=== PATIENT | male | born 1945 | race African-American/Black ===

== ENCOUNTER 2020-11-27 20:29 | Inpatient (IN) | payer MEDICARE, MEDICAID ==
[~2020-11-27] VITALS: Ht 172.7 cm; Wt 97.7 kg
[~2020-11-27 20:29] MED LIST: HYDR12.56 PO
[2020-11-27] MEDS ORDERED: ACETAMINOPHEN 500 MG TAB PO ONE (23:30)
[2020-11-27 23:51] LABS: Basophils # (auto) 0 10 ^3/uL (0-0.2); Basophils % (auto) 0.2 % (0.0-2.0); Eosinophils # (auto) 0 10 ^3/uL (0-0.8); Eosinophils % (auto) 0.1 % (0.0-7.0); Hematocrit 44.4 % (41.0-53.0); Hemoglobin 15.7 g/dL (13.5-17.5); Lymphocytes # (auto) 0.5 10 ^3/uL (0.4-5.4); Lymphocytes % (auto) 6.7 % (10.0-50.0); Mean Corpuscular Hemoglobin 30.2 pg (28.0-32.0); Mean Corpuscular Hgb Conc. 35.5 g/dL (32.0-36.0); Mean Corpuscular Volume 85.2 fL (80.0-100.0); Monocytes # (auto) 0.5 10 ^3/uL (0-1.3); Monocytes % (auto) 6.1 % (0.0-12.0); Neutrophils # (auto) 7.1 10 ^3/uL (1.6-8.6); Neutrophils % (auto) 86.9 % (37.0-80.0); Nucleated Red Blood Cells % 0.1 %; Red Blood Cells 5.21 10^6/uL (4.5-5.90); Red Cell Distribution Width 13.6 % (11.8-14.3); White Blood Cell 8.2 10^3/uL (4.4-10.8)
[2020-11-28 00:12] LABS: Albumin 3.2 g/dL (3.4-5.0); BUN/Creatinine Ratio 16.1; Calcium 8.7 mg/dL (8.5-10.1); Magnesium 1.8 mg/dL (1.6-2.6)
[2020-11-28 00:17] LABS: Bilirubin, Total 1.1 mg/dL (0.2-1.0); Total Protein 6.3 g/dL (6.4-8.2)
[2020-11-28 00:27] LABS: Potassium 2.8 mmol/L (3.5-5.1)
[2020-11-28] MEDS ORDERED: POTASSIUM CHL 20MEQ/100ML 100 ML IV ONE (00:45)
[2020-11-28] MEDS ORDERED: POTASSIUM EFFERVESENT TAB 25 MEQ PO ONE (00:45)
[2020-11-28] MEDS ORDERED: MAGNESIUM SULFATE 1GM/100ML 100 ML IV ONE (04:00)
[2020-11-28] MEDS ORDERED: ACETAMINOPHEN 325 MG TAB PO PRN (04:45)
[2020-11-28] MEDS ORDERED: ONDANSETRON HCL 4 MG/2 ML VIAL IV PRN (04:45)
[2020-11-28 04:48] LABS: BUN/Creatinine Ratio 19.2
[2020-11-28 04:58] LABS: Potassium 2.9 mmol/L (3.5-5.1)
[2020-11-28] MEDS ORDERED: POTASSIUM CHL 20 Meq TABLET PO ONE (06:45)
[2020-11-28] MEDS: cefTRIAXone 1GM/50ML D5W 50 ML IV SCH (08:11)
[2020-11-28] MEDS: LOSARTAN POTASSIUM 50 MG TAB PO SCH (08:15)
[2020-11-28] MEDS: PANTOPRAZOLE 40 MG TAB PO SCH (08:16)
[2020-11-28] MEDS: amLODIPine BESYLATE 5 MG TAB PO SCH (08:16)
[2020-11-28 08:26] LABS: BUN/Creatinine Ratio 17.1; Calcium 8.9 mg/dL (8.5-10.1); Potassium 3.2 mmol/L (3.5-5.1)
[2020-11-28] MEDS ORDERED: POTASSIUM CHL 10 Meq TABLET PO SCH (10:00)
[2020-11-28 10:32] LABS: Urine Bacteria NONE SEEN /hpf (None Seen); Urine Blood 3+ /uL (Negative); Urine Specific Gravity 1.007 (1.001-1.035); Urine WBC 2 /hpf (0 - 3)
[2020-11-28] MEDS ORDERED: POTA10TA51 PO (15:58)
[2020-11-28] MEDS ORDERED: ATOR20TA50 PO (15:58)
[2020-11-28] MEDS ORDERED: LOSA-69 PO (15:58)
[2020-11-28] MEDS ORDERED: AMLO-496 PO (15:58)
[2020-11-28 16:51] VITALS: BP 147/67
[2020-11-28 19:34] LABS: Alcohol, Urine < 3.0 mg/dL (0-10); Amphetamine Screen, Urine NEGATIVE (NEGATIVE); Barbiturate Scree,Urine NEGATIVE (NEGATIVE); Benzodiazephine Screen, Urine NEGATIVE (NEGATIVE); Cannabinoid Screen, Urine POSITIVE (NEGATIVE); Cocaine Screen, Urine NEGATIVE (NEGATIVE); Opiate Scree,Urine NEGATIVE (NEGATIVE); Phencyclidine Screen, Urine NEGATIVE (NEGATIVE)
[2020-11-28] MEDS: ATORVASTATIN 20 MG TAB PO SCH (21:36)
[2020-11-28 22:00] VITALS: BP 125/76
[2020-11-29 05:00] VITALS: BP 130/77
[2020-11-29 07:18] LABS: Magnesium 2.1 mg/dL (1.6-2.6)
[2020-11-29 07:25] LABS: BUN/Creatinine Ratio 19.4
[2020-11-29 07:32] LABS: Potassium 2.9 mmol/L (3.5-5.1)
[2020-11-29 07:37] LABS: Basophils # (auto) 0 10 ^3/uL (0-0.2); Basophils % (auto) 0.4 % (0.0-2.0); Eosinophils # (auto) 0.1 10 ^3/uL (0-0.8); Eosinophils % (auto) 1.5 % (0.0-7.0); Hematocrit 42.9 % (41.0-53.0); Hemoglobin 15.4 g/dL (13.5-17.5); Lymphocytes # (auto) 1.8 10 ^3/uL (0.4-5.4); Mean Corpuscular Hemoglobin 30.3 pg (28.0-32.0); Mean Corpuscular Hgb Conc. 35.9 g/dL (32.0-36.0); Mean Corpuscular Volume 84.4 fL (80.0-100.0); Monocytes % (auto) 12.8 % (0.0-12.0); Neutrophils # (auto) 4.8 10 ^3/uL (1.6-8.6); Neutrophils % (auto) 62.3 % (37.0-80.0); Nucleated Red Blood Cells % 0.2 %; Red Blood Cells 5.09 10^6/uL (4.5-5.90); Red Cell Distribution Width 13.8 % (11.8-14.3); White Blood Cell 7.8 10^3/uL (4.4-10.8)
[2020-11-29 09:00] VITALS: BP 130/63
[2020-11-29] MEDS: POTASSIUM CHL 20MEQ/100ML 100 ML IV SCH ×2 (09:00→11:00)
[2020-11-29] MEDS: cefTRIAXone 1GM/50ML D5W 50 ML IV SCH (09:00)
[2020-11-29] MEDS: PANTOPRAZOLE 40 MG TAB PO SCH (09:41)
[2020-11-29] MEDS: amLODIPine BESYLATE 5 MG TAB PO SCH (10:00)
[2020-11-29] MEDS ORDERED: POTASSIUM CHL 20 Meq TABLET PO SCH (10:00)
[2020-11-29] MEDS: LOSARTAN POTASSIUM 50 MG TAB PO SCH (10:00)
[2020-11-29] MEDS ORDERED: LORazepam 2MG/ML-1ML VIAL IV ONE (11:00)
[2020-11-29] MEDS ORDERED: CHOLECALCIFEROL (VITD3) 2,000 UNIT CAP/TAB PO ONE (11:15)
[2020-11-29 13:00] VITALS: BP 133/95
[2020-11-29 17:00] VITALS: BP 154/79
[2020-11-29] MEDS: ATORVASTATIN 20 MG TAB PO SCH (21:09)
[2020-11-29 22:00] VITALS: BP 156/82
[2020-11-29 23:52] LABS: Folate (Folic Acid) 8.33 ng/mL (5.38-24)
[2020-11-30 05:00] VITALS: BP 155/83
[2020-11-30] MEDS: PANTOPRAZOLE 40 MG TAB PO SCH (08:54)
[2020-11-30] MEDS: LOSARTAN POTASSIUM 50 MG TAB PO SCH (08:54)
[2020-11-30] MEDS: amLODIPine BESYLATE 5 MG TAB PO SCH (08:54)
[2020-11-30 09:00] VITALS: BP 140/81
[2020-11-30] MEDS ORDERED: POTASSIUM CHL 20 Meq TABLET PO ONE (09:00)
[2020-11-30] MEDS ORDERED: CHOLECALCIFEROL (VITD3) 2,000 UNIT CAP/TAB PO SCH (10:00)
[2020-11-30] MEDS ORDERED: DONE5TAB80 PO (10:17)
[2020-11-30] MEDS ORDERED: CHOL20007 PO (10:17)
[2020-11-30] MEDS ORDERED: ASPI-378 PO (10:20)
[2020-11-30 10:56] VITALS: BP 155/83
[2020-11-30] MEDS ORDERED: AMPI500C8 PO (11:31)
[2020-11-30 13:00] VITALS: BP 142/77
[2020-11-30 17:02] VITALS: BP 105/75
[2020-11-30] MEDS ORDERED: DONEPEZIL HYDROCHLORIDE 5 MG TAB PO SCH (22:00)
== END 2020-11-30 17:40 | disposition home health service (06) | DRG 425 ==
LOC: EDBD 20:29 → ER 20:33 → TELE 11-28 04:37 → WEST WING 11-28 15:55
PROVIDERS: ADMIT Nurse Practitioner; ATTEND Internal Medicine
DX: E87.6 Hypokalemia (principal); G93.41 Metabolic encephalopathy; E44.1 Mild protein-calorie malnutrition; G30.9 Alzheimer's disease, unspecified; F02.80 Dementia in other diseases classified elsewhere, unspecified severity, without behavioral disturbance, psychotic disturbance, mood disturbance, and anxiety; I48.91 Unspecified atrial fibrillation; R00.8 Other abnormalities of heart beat; Z20.822 Contact with and (suspected) exposure to COVID-19; N39.0 Urinary tract infection, site not specified; I10 Essential (primary) hypertension; F12.90 Cannabis use, unspecified, uncomplicated; Z68.32 Body mass index [BMI] 32.0-32.9, adult; E55.9 Vitamin D deficiency, unspecified; E78.5 Hyperlipidemia, unspecified; R29.6 Repeated falls; Z59.9 Problem related to housing and economic circumstances, unspecified
CPT/HCPCS: 36415; 70450; 70551; 71045; 80048; 80053; 80061; 80307; 81001; 82306; 82550; 82607; 82746; 83036; 83605; 83735; 83880; 84132; 84443; 84484; 85025; 87040; 87086; 87088; 87426; 93005; 93306; 95819; 96365; 96366; 96367; 96368; 97163; G0378; J0696; J3480